=== PATIENT | male | born 1935 | race Caucasian/White ===

== ENCOUNTER 2020-07-22 17:28 | Inpatient (IN) | payer MEDICARE ==
[2020-07-21 23:16] VITALS: BP 151/91
[~2020-07-22] VITALS: Ht 179.1 cm; Wt 91.6 kg
[2020-07-22 17:59] LABS: BASOPHILS % 0.6 % (0.0-1.0); EOSINOPHILS # (AUTO) 0.2 (0.0-0.4); EOSINOPHILS % 3.2 % (0.0-6.0); HEMATOCRIT 35.9 % (38.2-49.6); LYMPHOCYTES # (AUTO) 1.5 (1.0-3.2); LYMPHOCYTES % 21.2 % (18.0-39.1); MEAN CORPUSCULAR HEMOGLOBIN 31.3 pg (28-32); MEAN CORPUSCULAR HGB CONC 33.4 g/dL (31-35); MEAN CORPUSCULAR VOLUME 93.5 fL (81-99); MONOCYTES # (AUTO) 0.5 (0.2-0.8); MONOCYTES % 7.3 % (4.4-11.3); NEUTROPHILS # (AUTO) 4.7 (2.1-6.9); PLATELET COUNT 203 x10e3/uL (140-360); RED BLOOD COUNT 3.84 x10e6/uL (4.3-5.7); RED CELL DISTRIBUTION WIDTH 13.7 % (11.7-14.4)
[2020-07-22] MEDS ORDERED: LIDOCAINE JELLY 2% 10ML URO-JET TOP ONE (18:00)
[2020-07-22] MEDS ORDERED: LIDOCAINE JELLY 2% 10ML URO-JET ONE (18:08)
[2020-07-22 18:20] LABS: ALBUMIN 3.8 g/dL (3.5-5.0); ALBUMIN/GLOBULIN RATIO 0.8 (0.8-2.0); CALCIUM 9.1 mg/dL (8.4-10.2); CREATININE, SERUM 1.24 mg/dL (0.72-1.25)
[2020-07-22 18:26] LABS: CREATINE KINASE MB 0.8 ng/mL (0-5.0)
[2020-07-22 21:02] LABS: CLARITY,URINE TURBID (CLEAR); COLOR,URINE RED (YELLOW); LEUKOCYTE ESTERASE ,URINE NEGATIVE (NEGATIVE); NITRITE,URINE NEGATIVE (NEGATIVE); PROTEIN,URINE DIPSTICK >=300 (NEGATIVE)
[2020-07-22 21:03] LABS: KETONES,URINE NEGATIVE (NEGATIVE); URINE UROBILINOGEN 0.2 mg/dL (0.2 - 1)
[2020-07-22 21:04] LABS: BACTERIA,URINE RARE /HPF; RBC,URINE >50 /HPF (0-5); WBC,URINE (MAN) 0-5 /HPF (0-5)
[2020-07-22 21:24] LABS: INR 1.1; PROTHROMBIN TIME 14.9 seconds (11.9-14.5)
[2020-07-22 21:25] LABS: PARTIAL THROMBOPLASTIN TIME 31.9 seconds (23.8-35.5)
[2020-07-22] MEDS ORDERED: ONDANSETRON HCL INJ 2MG/ML 2ML 2 MG/ML VIAL IV ONE (22:15)
[2020-07-22] MEDS ORDERED: MORPHINE SULFATE INJ 4 MG/ML INJ 1ML IV PRN ×2 (22:15→23:00)
[2020-07-22] MEDS ORDERED: ONDANSETRON HCL INJ 2MG/ML 2ML 2 MG/ML VIAL IV PRN (23:00)
[2020-07-22 23:11] VITALS: BP 151/91
[2020-07-22] MEDS ORDERED: ZITHROMAX500 MG PO (23:15)
[2020-07-22] MEDS ORDERED: CARVEDILOL12.5 MG PO (23:15)
[2020-07-22] MEDS ORDERED: AMIODARONE HCL200 MG PO (23:15)
[2020-07-22] MEDS ORDERED: AMLODIPINE BESY10 MG PO (23:15)
[2020-07-22] MEDS ORDERED: ELIQUIS2.5 MG PO (23:15)
[2020-07-22 23:27] VITALS: BP 151/91
[2020-07-23 04:00] VITALS: BP 150/83
[2020-07-23] MEDS: AMIODARONE HCL 200 MG TAB PO SCH ×3 (05:25→22:00)
[2020-07-23 07:26] VITALS: BP 138/71
[2020-07-23 07:45] VITALS: BP 138/71
[2020-07-23] MEDS: CARVEDILOL 12.5 MG TAB PO SCH ×2 (08:39→17:17)
[2020-07-23] MEDS: AMLODIPINE BESYLATE 10 MG TAB PO SCH (08:39)
[2020-07-23 11:41] VITALS: BP 140/76
[2020-07-23 16:17] VITALS: BP 155/75
[2020-07-23 20:00] VITALS: BP 142/76
[2020-07-24] VITALS (7 sets, daily range): BP systolic 114–145; BP diastolic 55–77
[2020-07-24] MEDS ORDERED: CEFTRIAXONE SOD 1 GM/50 ML BAG IV SCH (05:00)
[2020-07-24] MEDS: AMIODARONE HCL 200 MG TAB PO SCH ×3 (05:17→21:30)
[2020-07-24] MEDS ORDERED: CEFTRIAXONE SOD 1 GM in SODIUM CHLORIDE 0.9% 50ML 50 ML IV SCH (05:30)
[2020-07-24 06:55] LABS: BASOPHILS % 0.4 % (0.0-1.0); EOSINOPHILS # (AUTO) 0.1 (0.0-0.4); EOSINOPHILS % 0.9 % (0.0-6.0); HEMATOCRIT 36.5 % (38.2-49.6); HEMOGLOBIN 12.4 g/dL (14.0-18.0); LYMPHOCYTES % 13.5 % (18.0-39.1); MEAN CORPUSCULAR HEMOGLOBIN 31.8 pg (28-32); MEAN CORPUSCULAR VOLUME 93.6 fL (81-99); MONOCYTES # (AUTO) 0.8 (0.2-0.8); MONOCYTES % 11.2 % (4.4-11.3); NEUTROPHILS # (AUTO) 5.4 (2.1-6.9); NEUTROPHILS % 72.9 % (38.7-80.0); PLATELET COUNT 154 x10e3/uL (140-360); RED CELL DISTRIBUTION WIDTH 13.9 % (11.7-14.4)
[2020-07-24 07:16] LABS: ALBUMIN/GLOBULIN RATIO 0.8 (0.8-2.0); ANION GAP 15.3 mmol/L (8-16); CALCIUM 8.3 mg/dL (8.4-10.2); CREATININE, SERUM 1.95 mg/dL (0.72-1.25); POTASSIUM 4.3 mmol/L (3.5-5.1)
[2020-07-24 07:23] LABS: BAND NEUTROPHILS % (MANUAL) 1 %; EOSINOPHILS % (MANUAL) 3 % (0-7); LYMPHOCYTES % (MANUAL) 11 % (19-48); MONOCYTES % (MANUAL) 8 % (3.4-9.0); NEUTROPHILS % (MANUAL) 76 % (40-74); PLATELET ESTIMATE ADEQUATE; PLATELET MORPHOLOGY COMMENT NORMAL; RBC MORPHOLOGY COMMENT NORMAL
[2020-07-24] MEDS: CARVEDILOL 12.5 MG TAB PO SCH ×2 (08:00→16:33)
[2020-07-24] MEDS ORDERED: SODIUM CHLORIDE 0.9% 250ML 250 ML ONE ×2 (08:49→15:07)
[2020-07-24] MEDS ORDERED: SODIUM CHLORIDE 0.9% 500ML 500 ML ONE (11:03)
[2020-07-24] MEDS: CEFTRIAXONE SOD 1 GM in SODIUM CHLORIDE 0.9% 50ML 50 ML IV SCH (15:23)
[2020-07-24] MEDS: AMLODIPINE BESYLATE 10 MG TAB PO SCH (15:23)
[2020-07-24] MEDS: TAMSULOSIN HCL 0.4 MG CAP PO SCH (15:23)
[2020-07-25] VITALS: BP 126/67
[2020-07-25 04:00] VITALS: BP 117/61
[2020-07-25] MEDS: AMIODARONE HCL 200 MG TAB PO SCH ×2 (05:30→14:38)
[2020-07-25 06:31] LABS: BASOPHILS % 0.5 % (0.0-1.0); EOSINOPHILS # (AUTO) 0.2 (0.0-0.4); EOSINOPHILS % 3.4 % (0.0-6.0); HEMATOCRIT 30.9 % (38.2-49.6); HEMOGLOBIN 10.4 g/dL (14.0-18.0); LYMPHOCYTES # (AUTO) 1.3 (1.0-3.2); LYMPHOCYTES % 19.8 % (18.0-39.1); MEAN CORPUSCULAR HEMOGLOBIN 31.6 pg (28-32); MEAN CORPUSCULAR HGB CONC 33.7 g/dL (31-35); MEAN CORPUSCULAR VOLUME 93.9 fL (81-99); MONOCYTES # (AUTO) 0.7 (0.2-0.8); MONOCYTES % 10.9 % (4.4-11.3); NEUTROPHILS # (AUTO) 4.1 (2.1-6.9); NEUTROPHILS % 63.5 % (38.7-80.0); PLATELET COUNT 167 x10e3/uL (140-360); RED BLOOD COUNT 3.29 x10e6/uL (4.3-5.7); RED CELL DISTRIBUTION WIDTH 13.7 % (11.7-14.4)
[2020-07-25 06:54] LABS: ALBUMIN 2.7 g/dL (3.5-5.0); ALBUMIN/GLOBULIN RATIO 0.8 (0.8-2.0); ANION GAP 13.7 mmol/L (8-16); CALCIUM 8.1 mg/dL (8.4-10.2); CREATININE, SERUM 1.34 mg/dL (0.72-1.25); POTASSIUM 3.7 mmol/L (3.5-5.1)
[2020-07-25] MEDS: TAMSULOSIN HCL 0.4 MG CAP PO SCH (08:21)
[2020-07-25] MEDS: AMLODIPINE BESYLATE 10 MG TAB PO SCH (08:21)
[2020-07-25] MEDS: CARVEDILOL 12.5 MG TAB PO SCH ×2 (08:21→16:53)
[2020-07-25 08:30] VITALS: BP 121/63
[2020-07-25 11:57] VITALS: BP 120/60
[2020-07-25] MEDS ORDERED: ONDANSETRON HCL 4 MG ORAL DISINTEGRATING TAB PO PRN (14:00)
[2020-07-25] MEDS: CEFTRIAXONE SOD 1 GM in SODIUM CHLORIDE 0.9% 50ML 50 ML IV SCH (14:38)
[2020-07-25 16:30] VITALS: BP 125/61
== END 2020-07-25 17:49 | disposition home or self-care (01) | DRG 723 ==
LOC: ER 17:31 → ERHOLD 18:57 → MED/SURG 23:22 → OBSVTOIN 07-23 12:49
PROVIDERS: ADMIT Internal Medicine; ATTEND Internal Medicine
PROC: 30233L1 Transfusion of Nonautologous Fresh Plasma into Peripheral Vein, Percutaneous Approach (ICD-10-PCS; principal; 2020-07-23)
PROC: 30233K1 Transfusion of Nonautologous Frozen Plasma into Peripheral Vein, Percutaneous Approach (ICD-10-PCS; 2020-07-23)
DX: C61 Malignant neoplasm of prostate (principal); N17.9 Acute kidney failure, unspecified; N13.8 Other obstructive and reflux uropathy; C79.51 Secondary malignant neoplasm of bone; N40.1 Benign prostatic hyperplasia with lower urinary tract symptoms; I48.91 Unspecified atrial fibrillation; N18.30 Chronic kidney disease, stage 3 unspecified; I12.9 Hypertensive chronic kidney disease with stage 1 through stage 4 chronic kidney disease, or unspecified chronic kidney disease; D64.9 Anemia, unspecified; R39.14 Feeling of incomplete bladder emptying; Z20.822 Contact with and (suspected) exposure to COVID-19; Z82.49 Family history of ischemic heart disease and other diseases of the circulatory system; N28.89 Other specified disorders of kidney and ureter; D63.8 Anemia in other chronic diseases classified elsewhere
CPT/HCPCS: 36415; 72194; 74176; 80053; 81001; 82550; 82553; 83735; 84152; 84484; 85025; 85610; 85730; 86900; 87086; 87186; 99284; G0378; J0696; J2270; J2405; J7040; J7050; P9017; U0002

== ENCOUNTER 2020-12-02 13:20 | Emergency (ER) | payer MEDICARE ==
[~2020-12-02] VITALS: Ht 179.1 cm; Wt 91.6 kg
[~2020-12-02 13:20] MED LIST: AMIODARONE HCL200 MG PO; AMLODIPINE BESY10 MG PO; CARVEDILOL12.5 MG PO; ELIQUIS2.5 MG PO; ZITHROMAX500 MG PO
[2020-12-02 14:24] LABS: BASOPHILS % 0.5 % (0.0-1.0); EOSINOPHILS % 0.2 % (0.0-6.0); HEMATOCRIT 38.6 % (38.2-49.6); HEMOGLOBIN 12.8 g/dL (14.0-18.0); LYMPHOCYTES # (AUTO) 1.9 (1.0-3.2); LYMPHOCYTES % 22.8 % (18.0-39.1); MEAN CORPUSCULAR HEMOGLOBIN 33.3 pg (28-32); MEAN CORPUSCULAR HGB CONC 33.2 g/dL (31-35); MEAN CORPUSCULAR VOLUME 100.5 fL (81-99); MONOCYTES # (AUTO) 0.5 (0.2-0.8); MONOCYTES % 6.3 % (4.4-11.3); NEUTROPHILS # (AUTO) 5.2 (2.1-6.9); NEUTROPHILS % 64.2 % (38.7-80.0); PLATELET COUNT 192 x10e3/uL (140-360); RED BLOOD COUNT 3.84 x10e6/uL (4.3-5.7); RED CELL DISTRIBUTION WIDTH 16.1 % (11.7-14.4)
[2020-12-02 14:53] LABS: ALBUMIN 3.2 g/dL (3.5-5.0); ANION GAP 14.5 mmol/L (8-16); CALCIUM 8.3 mg/dL (8.4-10.2); CREATININE, SERUM 1.03 mg/dL (0.72-1.25); POTASSIUM 3.5 mmol/L (3.5-5.1)
[2020-12-02 16:20] LABS: BAND NEUTROPHILS % (MANUAL) 9 %; EOSINOPHILS % (MANUAL) 1 % (0-7); LYMPHOCYTES % (MANUAL) 26 % (19-48); METAMYELOCYTES % (MANUAL) 2 % (0-0); MONOCYTES % (MANUAL) 2 % (3.4-9.0); NEUTROPHILS % (MANUAL) 58 % (40-74)
[2020-12-02 16:22] LABS: PLATELET ESTIMATE ADEQUATE; PLATELET MORPHOLOGY COMMENT NORMAL; RBC MORPHOLOGY COMMENT NORMAL
[2020-12-02] MEDS ORDERED: SODIUM CHLORIDE 0.9% 50ML 50 ML ONE (17:01)
[2020-12-02] MEDS ORDERED: IOPAMIDOL 370 MG/ML 200 ML INFUS..BTL INJ ONE (17:02)
[2020-12-02] MEDS ORDERED: FUROSEMIDE INJ 10 MG/ML 2 ML VIAL IV ONE (19:15)
[2020-12-02 19:42] VITALS: BP 119/82
== END 2020-12-02 19:44 | disposition home or self-care (01) ==
LOC: ER 13:36
DX: R06.00 Dyspnea, unspecified (principal); C61 Malignant neoplasm of prostate; I10 Essential (primary) hypertension; Z20.822 Contact with and (suspected) exposure to COVID-19; R94.31 Abnormal electrocardiogram [ECG] [EKG]
CPT/HCPCS: 36415; 71045; 71260; 80053; 83880; 84484; 85025; 85379; 93005; 99283; J1940; Q9967; U0002